=== PATIENT | female | born 1955 | race Caucasian/White ===

== ENCOUNTER 2021-07-07 10:24 | Emergency (ER) | payer SELFPAY ==
[2021-07-07 10:36] VITALS: BP 136/96; PULSE 93; RESP 16; TEMP 36.7; O2SAT 98
--- NOTE | 2021-07-07 10:43 | ED.SKABFB ---
HPI - Skin/Abscess/Foreign Bdy General Chief complaint: Skin/Abscess/Foreign Body Stated complaint: Skin Sore Time Seen by Provider: 07/07/21 10:43 Source: patient History of Present Illness HPI narrative: patient presents with and area to her face. patient states it was a large pimple/black head that she popped one week ago and has continued to drain since she opened up the area. complaint: abscess/boil Related Data Home Medications Medication Instructions Recorded Confirmed atorvastatin 40 mg PO DAILY 07/07/21 07/07/21 Allergies Allergy/AdvReac Type Severity Reaction Status Date / Time codeine Allergy Swelling Verified 07/07/21 10:56 of Lip/Tongue/Throat Review of Systems Review of Systems: CONSTITUTIONAL: Denies fever, chills, or sweats. EYES: Denies visual changes, redness, or discharge. ENT: Denies rhinorrhea, congestion, sore throat, or otalgia. CARDIOVASCULAR: Denies chest pain, palpitations, or edema. RESPIRATORY: Denies cough or dyspnea. GASTROINTESTINAL: Denies abdominal pain, nausea, vomiting, or diarrhea. GENITOURINARY: Denies dysuria or hematuria. SKIN: Denies rash or itching. MUSCULOSKELETAL: Denies back pain, joint pain, or myalgia. NEUROLOGIC: Denies headache, numbness, or weakness. PSYCHIATRIC: Denies anxiety or depression. PMFSH Comments At time of signature, agree with nursing past medical, surgical, social and family history. There is no relevant family history pertinent to the presenting complaint Exam Narrative: GENERAL: Well-appearing, well-nourished, and in no acute distress. HEAD: Normocephalic, atraumatic. EYES: PERRLA and EOMI. ENT: Nares clear, no rhinorrhea or epistaxis. Mucous membranes moist. NECK: Supple. CHEST: Clear to auscultation. No respiratory distress. HEART: Regular rate and rhythm. No murmur heard. Normal peripheral pulses. ABDOMEN: Soft, nontender, nondistended, normal active bowel sounds. EXTREMITIES: Normal range of motion. No edema. SKIN: Warm, dry, no rash.2 cm area to left cheek no fluctuance no induration no drainage and no streaking no indication for I&D NEURO: No focal deficits. Alert and oriented x3. [place] Coma Scale Eye Opening: Spontaneous 4 [place] Coma Scale Motor: Obeys Commands 6 [place] Coma Scale Verbal: Oriented 5 [place] Coma Scale Total 15 HENMT: Head images: 1. 2cm area no fluctuation no induration no indication for I&D Course Course Level of Care: Express Care Visit Vital Signs Vital signs: Vital Signs Temperature 36.7 C 07/07/21 10:36 Pulse Rate 93 07/07/21 10:36 Respiratory Rate 16 07/07/21 10:36 Blood Pressure 136/96 H 07/07/21 10:36 Pulse Oximetry 98 07/07/21 10:36 Temperature 36.7 C 07/07/21 10:56 Pulse Rate 93 07/07/21 10:56 Respiratory Rate 16 07/07/21 10:56 Blood Pressure 136/96 H 07/07/21 10:56 Pulse Oximetry 98 07/07/21 10:56 Addressed elevated BP today. Today's blood pressure higher than recommended range. Discussed importance of follow -up with PCP and possible shelter effects/cardiovascular events related to HTN. Currently patient denies headache, dizziness, vision changes, CP or shortness of breath. Discussed with patient importance to follow-up with primary care provider and possible dermatology referral for removal of abscess to left cheek. Discussed red flags and when to go to ER. Patient is agreeable with plan of care. MDM - Skin/Abscess/Foreign Bdy Differential Diagnosis Differential diagnosis: Likely abscess of skin or subcutaneous tissue, viral exanthem, dermatophytosis, urticaria, herpes zoster, allergic reaction to drug, cellulitis, eczema, insect bites, impetigo and contact dermatitis Critical Care Time Critical Care Time Critical Care Time: No Discharge Plan Discharge Clinical Impression: Abscess of skin or subcutaneous tissue Patient Disposition: Home, Self-Care Condition: Stable Instructions: Antibiotic Form, Abscess (ED)
[2021-07-07 10:56] VITALS: BP 136/96; PULSE 93; RESP 16; TEMP 36.7; O2SAT 98
== END 2021-07-07 11:05 | disposition home or self-care (01) ==
PROVIDERS: Emergency Provider Nurse Practitioner Family
DX: L02.01 Cutaneous abscess of face (principal); E78.00 Pure hypercholesterolemia, unspecified
CPT/HCPCS: 99213; G0463